=== PATIENT | female | born 1970 | race American Indian/Alaskan Native ===

== ENCOUNTER 2016-11-19 19:42 | Emergency (ER) | payer MEDICARE ==
[2016-11-19 20:58] LABS: Basophils % (Auto) 0.2 % (0.0-1.8); Eosinophils % (Auto) 0.7 % (0.0-4.3); Hematocrit 38.9 % (30.3-42.9); Hemoglobin 12.1 gm/dl (10.1-14.3); Mean Corpuscular HGB Conc 31 % (30-34); Mean Corpuscular Volume 79 fl (79-97); Platelet Count 307 K/mm3 (140-440); Red Blood Count 4.96 M/mm3 (3.65-5.03); Red Cell Distribution Width 16.9 % (13.2-15.2); White Blood Count 5.1 K/mm3 (4.5-11.0)
[2016-11-19 21:01] LABS: Mean Corpuscular Hemoglobin 24 pg (28-32)
--- NOTE | 2016-11-19 21:07 | Cat Scan Report ---
FINAL REPORT PROCEDURE: CT HEAD/BRAIN WO CON TECHNIQUE: Computerized tomography of the head was performed without contrast material. HISTORY: FLORES, increased L sided weakness COMPARISON: No prior studies are available for comparison. FINDINGS: Brain: Brain density appears normal. No evidence of intracranial hemorrhage. No parenchymal hemorrhage, mass lesions or mass effect are seen. No abnormal extraxial fluid collects or masses are seen. Ventricles: Ventricles are normal size and are midline. Bone Windows: No evidence of skull fracture. Paranasal sinuses: There is mild mucosal thickening and a small air-fluid level in the left side of the sphenoid sinus. The appearance suggests acute sinusitis. Mastoid air cells: Clear IMPRESSION: Negative unenhanced CT of the brain. Mild acute sphenoid sinusitis.
[2016-11-19 21:22] LABS: Anion Gap 17 mmol/L; BUN/Creatinine Ratio 12.85; Blood Urea Nitrogen 9 mg/dL (7-17); Calcium 8.6 mg/dL (8.4-10.2); Carbon Dioxide 25 mmol/L (22-30); Glucose 95 mg/dL (65-100); Potassium 3.9 mmol/L (3.6-5.0); Sodium 138 mmol/L (137-145)
[2016-11-20 03:25] VITALS: BP 180/107
[2016-11-20] MEDS ORDERED: TYLENOL ONE (03:25)
[2016-11-20] MEDS ORDERED: TYLENOL PO ONE (03:25)
--- NOTE | 2016-11-21 20:44 | ED Elopement Review ---
ED Pt Elopement review - Results review Lab results: Laboratory Tests 11/19/16 11/19/16 11/20/16 20:38 20:38 00:00 WBC 5.1 RBC 4.96 Hgb 12.1 Hct 38.9 MCV 79 MCH 24 L MCHC 31 RDW 16.9 H Plt Count 307 Lymph % (Auto) 48.1 H Hart % (Auto) 8.5 H Eos % (Auto) 0.7 Baso % (Auto) 0.2 Lymph # 2.5 Hart # 0.4 Eos # 0.0 Baso # 0.0 Seg Neutrophils % 42.5 Seg Neutrophils # 2.2 Sodium 138 Potassium 3.9 Chloride 100.0 Carbon Dioxide 25 Anion Gap 17 BUN 9 Creatinine 0.7 Estimated GFR > 60 BUN/Creatinine Ratio 12.85 Glucose 95 Calcium 8.6 Troponin T < 0.010 < 0.010 11/20/16 03:14 WBC RBC Hgb Hct MCV MCH MCHC RDW Plt Count Lymph % (Auto) Hart % (Auto) Eos % (Auto) Baso % (Auto) Lymph # Hart # Eos # Baso # Seg Neutrophils % Seg Neutrophils # Sodium Potassium Chloride Carbon Dioxide Anion Gap BUN Creatinine Estimated GFR BUN/Creatinine Ratio Glucose Calcium Troponin T < 0.010 - Call Back decision Pt Call Back Decision: Pt to F/U with PMD (patient is to follow with the primary care provider regarding elevated blood pressure. Patient persists to have a headache she may follow up back in the ER.)
== END 2016-11-20 06:40 | disposition left against medical advice (07) ==
LOC: ED 19:42
DX: R51 Headache (principal); R07.9 Chest pain, unspecified; R05 Cough; Z53.21 Procedure and treatment not carried out due to patient leaving prior to being seen by health care provider
CPT/HCPCS: 36415; 70450; 80048; 84484; 85025; 93005; 93010